=== PATIENT | female | born 1965 | race Caucasian/White ===

== ENCOUNTER 2016-11-25 07:07 | Day surgery (SDC) | payer OTHER ==
[~2016-11-25] VITALS: Ht 152.4 cm; Wt 63.5 kg
[~2016-11-25 07:07] MED LIST: AF-MIGRAIN1 PO; AMLODIPINE5 MG PO; AMOXICILLIN500 M2; B12-ACTIVE1 MG PO; BENTYL10 MG PO; CYCLOBENZAPR10 MG PO; D3400 UNI2 PO; DEPAKOTE125 MG PO; DOXEPIN HCL25 MG PO; ELMIRON100 MG PO; FISH OIL1 CAP; HYDROCODONE/ACE1 TAB PO; LOMOTIL2.5 MG PO; MACROBID100 MG PO; MIRAPEX0.125 M1; NORCO1 TA1 PO; NORVASC PO; TIZANIDINE4 MG PO; TYLENOL # 31 TA1 PO; [UNRECOGNIZED DRUG - OTHER]
[2016-11-25] MEDS ORDERED: TYLENOL # 31 TA1 PO (07:48)
[2016-11-25 11:42] VITALS: BP 118/65
== END 2016-11-25 10:05 | disposition home or self-care (01) | DRG 556 ==
LOC: ORM 07:07
PROVIDERS: ATTEND Anesthesiology Pain Medicine
PROC: 3E0U33Z Introduction of Anti-inflammatory into Joints, Percutaneous Approach (ICD-10-PCS; principal; 2016-11-25)
PROC: 3E0U3BZ Introduction of Anesthetic Agent into Joints, Percutaneous Approach (ICD-10-PCS; 2016-11-25)
DX: M25.552 Pain in left hip (principal); M70.62 Trochanteric bursitis, left hip; M25.551 Pain in right hip; M76.32 Iliotibial band syndrome, left leg

== ENCOUNTER 2016-12-23 06:34 | Day surgery (SDC) | payer OTHER ==
[2016-12-23] MEDS ORDERED: SLEEP PO (06:58)
[2016-12-23 09:24] VITALS: BP 117/65
== END 2016-12-23 08:30 | disposition home or self-care (01) | DRG 556 ==
LOC: ORM 06:34
PROVIDERS: ATTEND Anesthesiology Pain Medicine
PROC: 3E0U33Z Introduction of Anti-inflammatory into Joints, Percutaneous Approach (ICD-10-PCS; principal; 2016-12-23)
PROC: 3E0U3BZ Introduction of Anesthetic Agent into Joints, Percutaneous Approach (ICD-10-PCS; 2016-12-23)
DX: M25.552 Pain in left hip (principal); M70.62 Trochanteric bursitis, left hip; M76.32 Iliotibial band syndrome, left leg

== ENCOUNTER 2017-01-06 06:51 | Day surgery (SDC) | payer OTHER ==
[~2017-01-06] VITALS: Ht 152.4 cm; Wt 74.8 kg
[~2017-01-06 06:51] MED LIST changes: +SLEEP PO
[2017-01-06] MEDS ORDERED: VOLTAREN1%GEL TOP (07:33)
[2017-01-06 08:00] VITALS: BP 120/69
== END 2017-01-06 08:33 | disposition home or self-care (01) | DRG 558 ==
LOC: ORM 06:51
PROVIDERS: ATTEND Anesthesiology Pain Medicine
PROC: 3E0U33Z Introduction of Anti-inflammatory into Joints, Percutaneous Approach (ICD-10-PCS; principal; 2017-01-06)
PROC: 3E0U3BZ Introduction of Anesthetic Agent into Joints, Percutaneous Approach (ICD-10-PCS; 2017-01-06)
DX: M70.62 Trochanteric bursitis, left hip (principal); M25.552 Pain in left hip; M70.61 Trochanteric bursitis, right hip; M76.32 Iliotibial band syndrome, left leg

== ENCOUNTER 2017-08-04 06:29 | Day surgery (SDC) | payer OTHER ==
[~2017-08-04] VITALS: Ht 152.4 cm; Wt 68.0 kg
[~2017-08-04 06:29] MED LIST changes: +AMLODIPINE2.5 MG PO; +FLEXERIL PO; +MEDDOSEPAK PO; +VOLTAREN1%GEL TOP
[2017-08-04 13:58] VITALS: BP 111/67
== END 2017-08-04 09:33 | disposition home or self-care (01) | DRG 558 ==
LOC: ORM 06:29
PROVIDERS: ATTEND Anesthesiology Pain Medicine
PROC: 3E0U33Z Introduction of Anti-inflammatory into Joints, Percutaneous Approach (ICD-10-PCS; principal; 2017-08-04)
PROC: 3E0U3BZ Introduction of Anesthetic Agent into Joints, Percutaneous Approach (ICD-10-PCS; 2017-08-04)
DX: M70.62 Trochanteric bursitis, left hip (principal); M70.61 Trochanteric bursitis, right hip; M76.32 Iliotibial band syndrome, left leg; M76.31 Iliotibial band syndrome, right leg

== ENCOUNTER 2017-08-18 05:50 | Day surgery (SDC) | payer OTHER ==
[~2017-08-18] VITALS: Ht 152.4 cm; Wt 66.7 kg
[2017-08-18 07:44] VITALS: BP 127/62
[2017-08-18] MEDS ORDERED: TYLENOL # 31 TA1 PO (08:09)
== END 2017-08-18 08:15 | disposition home or self-care (01) | DRG 558 ==
LOC: ORM 05:50
PROVIDERS: ATTEND Anesthesiology Pain Medicine
PROC: 3E0U33Z Introduction of Anti-inflammatory into Joints, Percutaneous Approach (ICD-10-PCS; principal; 2017-08-18)
PROC: 3E0U3BZ Introduction of Anesthetic Agent into Joints, Percutaneous Approach (ICD-10-PCS; 2017-08-18)
DX: M70.62 Trochanteric bursitis, left hip (principal); M70.61 Trochanteric bursitis, right hip; M76.32 Iliotibial band syndrome, left leg; M76.31 Iliotibial band syndrome, right leg